=== PATIENT | male | born 1980 | race Caucasian/White ===

== ENCOUNTER → 2023-07-17 11:56 | Outpatient (BNVA) | payer OTHER, SELFPAY | PROVIDERS: PCP Nurse Practitioner; Visit Provider Internal Medicine Pulmonary Disease | DX: R06.02 Shortness of breath (principal); J45.998 Other asthma; F17.210 Nicotine dependence, cigarettes, uncomplicated; Z80.1 Family history of malignant neoplasm of trachea, bronchus and lung | CPT/HCPCS: 82785; 85025; 86003; 99204 ==

== ENCOUNTER 2023-08-07 08:02 | Outpatient (CLI) | payer OTHER, SELFPAY | END 2023-08-07 08:03 | disposition home or self-care (01) | LOC: RT 08:04 | PROVIDERS: PCP Nurse Practitioner; Visit Provider Internal Medicine Pulmonary Disease | DX: R06.02 Shortness of breath (principal) | CPT/HCPCS: 94010; 94618; 94726; 94729 ==

== ENCOUNTER → 2023-10-22 13:55 | Outpatient (BNVA) | payer OTHER, SELFPAY | PROVIDERS: PCP Nurse Practitioner; Visit Provider Internal Medicine Pulmonary Disease | DX: J45.20 Mild intermittent asthma, uncomplicated (principal); F17.210 Nicotine dependence, cigarettes, uncomplicated; Z80.1 Family history of malignant neoplasm of trachea, bronchus and lung | CPT/HCPCS: 99214 ==

== ENCOUNTER 2023-11-19 09:21 | Outpatient (CLI) | payer OTHER, SELFPAY ==
--- NOTE | 2023-11-19 09:29 | USR_ITS ---
PROCEDURE INFORMATION: Exam: US Retroperitoneal; Complete; Kidneys and Bladder Exam date and time: 11/19/2023 9:39 AM Age: 43 years old Clinical indication: Condition or disease; Other: Possible enlarged lt kd; Additional info: Incidental finding on mri TECHNIQUE: Imaging protocol: Real-time ultrasound of the retroperitoneum with image documentation. Complete exam focused on the kidneys and bladder. COMPARISON: No relevant prior studies available. FINDINGS: Right kidney: The right kidney measures 11.2 x 4.7 x 5.0 cm. No hydronephrosis. Left kidney: The left kidney measures 10.9 x 5.2 x 4.3 cm. No hydronephrosis. Urinary bladder: Unremarkable. US/US renal BI* [id number] IMPRESSION: 1. No ultrasound evident acute renal abnormality identified. 2. No significant size discrepancy between the kidneys.
== END 2023-11-19 09:22 | disposition home or self-care (01) ==
LOC: RAD 09:22
PROVIDERS: PCP Nurse Practitioner; Visit Provider Nurse Practitioner
DX: R93.422 Abnormal radiologic findings on diagnostic imaging of left kidney (principal)
CPT/HCPCS: 76770

== ENCOUNTER 2023-11-28 11:56 | Outpatient (RCR) | payer OTHER, SELFPAY | END 2023-12-24 23:59 | disposition home or self-care (01) | LOC: SPT 11:56 | PROVIDERS: PCP Nurse Practitioner; Visit Provider Surgery | DX: M51.27 Other intervertebral disc displacement, lumbosacral region (principal) | CPT/HCPCS: 97110; 97140; 97161; G0283 ==

== ENCOUNTER 2023-12-25 06:00 | Outpatient (RCR) | payer OTHER, SELFPAY | END 2024-01-22 23:59 | disposition home or self-care (01) | LOC: SPT 06:00 | PROVIDERS: PCP Nurse Practitioner; Visit Provider Surgery | DX: M54.16 Radiculopathy, lumbar region (principal); M51.27 Other intervertebral disc displacement, lumbosacral region | CPT/HCPCS: 97110; 97140 ==